=== PATIENT | male | born 1980 | race Caucasian/White ===

== ENCOUNTER 2019-08-28 22:29 | Emergency (ER) | payer OTHER, MEDICAID ==
[~2019-08-28] VITALS: Ht 175.2 cm; Wt 111.1 kg
[2019-08-29] MEDS ORDERED: DOXYCYCLINE100 M3 PO (00:21)
[2019-08-29] MEDS ORDERED: PREDNISONE20 M1 PO (00:21)
[2019-08-29] MEDS ORDERED: ROBITUSSIN DM 101 OZ PO (00:21)
[2019-09-02] MEDS ORDERED: DOXYCYCLINE100 M3 PO (14:47)
[2019-09-02] MEDS ORDERED: PREDNISONE20 M1 PO (14:47)
[2019-09-02] MEDS ORDERED: ROBITUSSIN DM 101 OZ PO (14:47)
== END 2019-08-29 00:48 | disposition home or self-care (01) ==
LOC: ED 22:29
DX: J20.9 Acute bronchitis, unspecified (principal); Z88.0 Allergy status to penicillin

== ENCOUNTER 2019-09-16 18:56 | Emergency (ER) | payer OTHER ==
[~2019-09-16] VITALS: Ht 175.2 cm; Wt 111.1 kg
[~2019-09-16 18:56] MED LIST: DOXYCYCLINE100 M3 PO; PREDNISONE20 M1 PO; ROBITUSSIN DM 101 OZ PO
[2019-09-16] MEDS ORDERED: CLEOCIN150 MG PO (19:27)
== END 2019-09-16 19:37 | disposition home or self-care (01) ==
LOC: ED 18:56
DX: S61.211A Laceration without foreign body of left index finger without damage to nail, initial encounter (principal); Z88.0 Allergy status to penicillin; Z79.899 Other long term (current) drug therapy; X58.XXXA Exposure to other specified factors, initial encounter; Y93.89 Activity, other specified; Y92.89 Other specified places as the place of occurrence of the external cause; Y99.8 Other external cause status

== ENCOUNTER 2020-03-04 20:01 | Emergency (ER) | payer OTHER ==
[~2020-03-04] VITALS: Ht 175.2 cm; Wt 111.1 kg
[~2020-03-04 20:01] MED LIST changes: +CLEOCIN150 MG PO
== END 2020-03-04 20:26 | disposition home or self-care (01) ==
LOC: ED 20:01
DX: L25.9 Unspecified contact dermatitis, unspecified cause (principal); Z88.0 Allergy status to penicillin; Z79.899 Other long term (current) drug therapy

== ENCOUNTER 2022-03-09 20:18 | Emergency (ER) | payer OTHER ==
[~2022-03-09] VITALS: Ht 175.2 cm; Wt 105.7 kg
[2022-03-09] MEDS ORDERED: VIBRAMYCIN100 MG PO (21:17)
[2022-03-09] MEDS ORDERED: METRONIDAZOLE500 M1 PO (21:17)
== END 2022-03-09 22:16 | disposition home or self-care (01) ==
LOC: ED 20:18
DX: S81.852A Open bite, left lower leg, initial encounter (principal); Z23 Encounter for immunization; Z88.0 Allergy status to penicillin; Z79.2 Long term (current) use of antibiotics; Z79.899 Other long term (current) drug therapy; W54.0XXA Bitten by dog, initial encounter; Y93.89 Activity, other specified; Y92.89 Other specified places as the place of occurrence of the external cause; Y99.8 Other external cause status

== ENCOUNTER 2022-09-21 19:04 | Emergency (ER) | payer OTHER ==
[~2022-09-21] VITALS: Ht 175.2 cm; Wt 113.4 kg
[~2022-09-21 19:04] MED LIST changes: +METRONIDAZOLE500 M1 PO; +VIBRAMYCIN100 MG PO
[2022-09-21 19:43] LABS: BASO # 0.1 10*3/uL (0.0-0.1); BASO % 0.7 % (0.0-1.0); EOS # 0.2 10*3/uL (0.0-0.4); EOS % 2.2 % (1.0-4.0); HEMATOCRIT 42.3 % (42.0-52.0); LYMPH # 2.3 10*3/uL (1.3-4.4); LYMPH % 30.1 % (27.0-41.0); MEAN CELL VOLUME 81.5 fl (80.0-94.0); MEAN CORPUSCULAR HGB 28.5 pg (27.0-31.0); MEAN PLATELET VOLUME 9.1 fl (9.6-12.3); MONO # 0.6 10*3/uL (0.1-1.0); MONO % 8.4 % (3.0-9.0); NEUT # 4.4 10*3/uL (2.3-7.9); NEUT % 58.3 % (47.0-73.0); PLATELET COUNT AUTOMATED 228 10*3/uL (130-400); RED BLOOD COUNT 5.19 10*6/uL (4.50-5.90); RED CELL DISTRI WIDTH 12.7 % (0-14.5); WHITE BLOOD COUNT 7.6 10*3/uL (4.8-10.8)
[2022-09-21 19:58] LABS: ALKALINE PHOSPHATASE 97 U/L (46-116); BUN 15 mg/dl (9-23); CHLORIDE 102 mmol/L (98-107); POTASSIUM 3.6 mmol/L (3.4-5.1); SGPT/ALT 32 U/L (10-49); TOTAL PROTEIN 7.1 gm/dL (6.0-8.0)
[2022-09-21] MEDS ORDERED: IBU800 M2 PO ×2 (20:09)
== END 2022-09-21 20:11 | disposition home or self-care (01) ==
LOC: ED 19:04
PROVIDERS: Emergency Medicine
DX: R07.89 Other chest pain (principal); Z88.0 Allergy status to penicillin

== ENCOUNTER 2023-02-03 12:13 | Emergency (ER) | payer OTHER ==
[~2023-02-03] VITALS: Ht 175.2 cm; Wt 111.1 kg
[~2023-02-03 12:13] MED LIST changes: +IBU800 M2 PO
[2023-02-03 12:52] LABS: BASO # 0.1 10*3/uL (0.0-0.1); BASO % 0.9 % (0.0-1.0); EOS # 0.2 10*3/uL (0.0-0.4); EOS % 2.3 % (1.0-4.0); HEMATOCRIT 45.3 % (42.0-52.0); LYMPH # 2.2 10*3/uL (1.3-4.4); LYMPH % 32.3 % (27.0-41.0); MEAN CELL VOLUME 83.1 fl (80.0-94.0); MEAN CORPUSCULAR HGB 28.3 pg (27.0-31.0); MONO # 0.6 10*3/uL (0.1-1.0); MONO % 8.3 % (3.0-9.0); NEUT # 3.8 10*3/uL (2.3-7.9); NEUT % 55.6 % (47.0-73.0); PLATELET COUNT AUTOMATED 238 10*3/uL (130-400); RED BLOOD COUNT 5.45 10*6/uL (4.50-5.90); RED CELL DISTRI WIDTH 12.6 % (0-14.5); WHITE BLOOD COUNT 6.9 10*3/uL (4.8-10.8)
[2023-02-03 13:03] LABS: ACT PARTIAL THROMBO TIME 26.8 SECONDS (20.0-32.1)
[2023-02-03 13:09] LABS: BILIRUBIN Negative (Negative); BLOOD Negative (Negative); CLARITY Clear (Clear); COLOR Yellow (Yellow); GLUCOSE 3+ (Negative); KETONE Trace (Negative); LEUKO ESTERASE Negative (Negative); NITRITE Negative (Negative); SPECIFIC GRAVITY >= 1.030 (1.001-1.030)
[2023-02-03 13:16] LABS: URINE AMPHETAMINES Negative (1000ng/ml); URINE BARBITURATES Negative (200ng/ml); URINE BENZODIAZEPINES Negative (200ng/ml); URINE CANNABINOIDS (THC) Negative (50ng/ml); URINE COCAINE Negative (300ng/ml); URINE METHADONE Negative (300ng/ml); URINE OPIATES Negative (300ng/ml); URINE PHENCYCLIDINE Negative (25ng/ml)
[2023-02-03 13:16] LABS: ALKALINE PHOSPHATASE 102 U/L (46-116); BUN 10 mg/dl (9-23); CHLORIDE 109 mmol/L (98-107); LIPASE 42 U/L (12-53); POTASSIUM 3.7 mmol/L (3.4-5.1); SGPT/ALT 34 U/L (10-49); TOTAL PROTEIN 7.8 gm/dL (6.0-8.0)
[2023-02-03 13:18] LABS: BACTERIA TRACE; EPITHELIAL CELLS 0-2; MUCOUS TRACE
[2023-02-03 13:29] LABS: ETHYL ALCOHOL < 3.0 mg/dl (<3)
== END 2023-02-03 15:29 | disposition home or self-care (01) ==
LOC: ED 12:13
PROVIDERS: Internal Medicine
DX: R10.9 Unspecified abdominal pain (principal); E11.9 Type 2 diabetes mellitus without complications; Z88.0 Allergy status to penicillin; Z79.899 Other long term (current) drug therapy

== ENCOUNTER 2023-05-07 19:28 | Emergency (ER) | payer OTHER ==
[~2023-05-07] VITALS: Ht 175.2 cm; Wt 111.1 kg
[2023-05-07 20:30] LABS: BASO % 0.6 % (0.0-1.0); EOS # 0.2 10*3/uL (0.0-0.4); EOS % 3.4 % (1.0-4.0); HEMATOCRIT 41.5 % (42.0-52.0); LYMPH # 1.9 10*3/uL (1.3-4.4); LYMPH % 29.7 % (27.0-41.0); MEAN CELL VOLUME 81.5 fl (80.0-94.0); MEAN CORPUSCULAR HGB 28.5 pg (27.0-31.0); MEAN CORPUSCULAR HGB CONC 34.9 g/dl (33.0-37.0); MEAN PLATELET VOLUME 8.9 fl (9.6-12.3); MONO # 0.5 10*3/uL (0.1-1.0); MONO % 7.3 % (3.0-9.0); NEUT # 3.8 10*3/uL (2.3-7.9); NEUT % 58.8 % (47.0-73.0); PLATELET COUNT AUTOMATED 220 10*3/uL (130-400); RED BLOOD COUNT 5.09 10*6/uL (4.50-5.90); RED CELL DISTRI WIDTH 12.2 % (0-14.5); WHITE BLOOD COUNT 6.5 10*3/uL (4.8-10.8)
[2023-05-07 20:33] LABS: BILIRUBIN Negative (Negative); BLOOD Negative (Negative); CLARITY Clear (Clear); COLOR Yellow (Yellow); GLUCOSE 3+ (Negative); KETONE 1+ (Negative); LEUKO ESTERASE Negative (Negative); NITRITE Negative (Negative); SPECIFIC GRAVITY >= 1.030 (1.001-1.030)
[2023-05-07 20:40] LABS: ACT PARTIAL THROMBO TIME 24.3 SECONDS (20.0-32.1)
[2023-05-07 20:49] LABS: EPITHELIAL CELLS 0-2
[2023-05-07 20:56] LABS: ALKALINE PHOSPHATASE 86 U/L (46-116); BUN 17 mg/dl (9-23); CHLORIDE 106 mmol/L (98-107); LIPASE 40 U/L (12-53); POTASSIUM 3.7 mmol/L (3.4-5.1); SGPT/ALT 23 U/L (5-49); TOTAL PROTEIN 6.9 gm/dL (6.0-8.0)
== END 2023-05-07 22:55 | disposition home or self-care (01) ==
LOC: ED 19:28
PROVIDERS: Internal Medicine
DX: R07.89 Other chest pain (principal); E11.9 Type 2 diabetes mellitus without complications; Z88.0 Allergy status to penicillin

== ENCOUNTER 2023-12-19 23:08 | Emergency (ER) | payer OTHER ==
[~2023-12-19] VITALS: Ht 175.2 cm; Wt 111.1 kg
[2023-12-20 00:05] LABS: BASO # 0.1 10*3/uL (0.0-0.1); BASO % 0.9 % (0.0-1.0); EOS # 0.2 10*3/uL (0.0-0.4); HEMATOCRIT 44.7 % (42.0-52.0); LYMPH # 2.6 10*3/uL (1.3-4.4); LYMPH % 37.4 % (27.0-41.0); MEAN CELL VOLUME 82.2 fl (80.0-94.0); MEAN CORPUSCULAR HGB 27.6 pg (27.0-31.0); MEAN CORPUSCULAR HGB CONC 33.6 g/dl (33.0-37.0); MEAN PLATELET VOLUME 8.5 fl (9.6-12.3); MONO # 0.7 10*3/uL (0.1-1.0); MONO % 9.8 % (3.0-9.0); NEUT # 3.4 10*3/uL (2.3-7.9); NEUT % 48.6 % (47.0-73.0); PLATELET COUNT AUTOMATED 231 10*3/uL (130-400); RED BLOOD COUNT 5.44 10*6/uL (4.50-5.90); RED CELL DISTRI WIDTH 12.5 % (0-14.5)
[2023-12-20 00:51] LABS: BUN 6 mg/dl (9-23); CHLORIDE 106 mmol/L (98-107); POTASSIUM 3.5 mmol/L (3.4-5.1)
[2023-12-20] MEDS ORDERED: LORazepam 1 MG TAB PO ONE (01:20)
== END 2023-12-20 01:19 | disposition home or self-care (01) ==
LOC: ED 23:08
PROVIDERS: Internal Medicine
DX: F41.9 Anxiety disorder, unspecified (principal); R00.0 Tachycardia, unspecified; R25.1 Tremor, unspecified; Z88.0 Allergy status to penicillin